=== PATIENT | female | born 1995 | race Asian ===

== ENCOUNTER 2020-12-30 16:15 | Emergency (ER) | payer BC ==
[~2020-12-30] VITALS: Ht 167.6 cm; Wt 71.4 kg
[2020-12-30] MEDS ORDERED: predniSONE 20 MG TABLET ONE (16:23)
[2020-12-30] MEDS ORDERED: FAMOTIDINE (20 MG) 20 MG TABLET ONE (16:24)
[2020-12-30] MEDS ORDERED: predniSONE 10 MG TABLET PO ONE (16:30)
[2020-12-30] MEDS ORDERED: FAMOTIDINE (20 MG) 20 MG TABLET PO ONE (16:30)
--- NOTE | 2020-12-30 16:33 | NUR ---
BIBRA 87 FEELING OF THROAT CLOSING, FACIAL/PERIORBITAL EDEMA, GENERALIZED HIVES AFTER TOUCH PEANUTS. RESPIRATION REGULAR AND UNLABORED. THE PATIENT IS IN ROOM AIR AND DENIES SOB. DENIES PAIN. DENIES HAVING ANY FEELILNG OF THROAT CLOSING. PER RA THE PATIENT WAS GIVEN EPI 0.5 MG IM AND BENEDRYL 50 MG IM AT THE SCENE (DR THOMAS MADE AWARE). ATTACHED TO THE MONITOR. WILL CONTINUE TO MONITOR THE PATIENT.
[2020-12-30] MEDS ORDERED: DIPH50CA4 PO (16:54)
[2020-12-30] MEDS ORDERED: PRED50TA PO (16:54)
[2020-12-30] MEDS ORDERED: EPIN0.3P3 IJ (16:54)
[2020-12-30] MEDS ORDERED: FAMO-131 PO (16:54)
[2020-12-30 17:58] VITALS: BP 113/72
== END 2020-12-30 17:55 | disposition home or self-care (01) ==
LOC: ER 16:18
DX: T78.1XXA Other adverse food reactions, not elsewhere classified, initial encounter (principal); R22.0 Localized swelling, mass and lump, head; Z79.899 Other long term (current) drug therapy; X58.XXXA Exposure to other specified factors, initial encounter
CPT/HCPCS: 99283; J7512 ×2